=== PATIENT | male | born 1970 | race Caucasian/White ===

== ENCOUNTER 2025-09-12 09:35 | Emergency (ER) | payer BC, SELFPAY ==
[2025-09-12 09:38] VITALS: BP 154/88
[2025-09-12 09:54] VITALS: BP 118/99
[2025-09-12 10:00] VITALS: BP 134/86
[2025-09-12 10:39] VITALS: BMI 32.6
[2025-09-12] MEDS: ANTIVERT 25 MG PO (10:41)
[2025-09-12] MEDS: NSS 1000 IV (10:41)
[2025-09-12 10:57] LABS: Hematocrit 45.4 % (39.0-52.0); Hemoglobin 16.0 g/dL (13.0-18.0); Mean Corp Hgb Conc. 35.2 g/dL (33.0-37.0); Mean Corpuscular Volume 93.4 fL (80.0-94.0); Nucleated Red Blood Cells % 0 % (-); Platelet Count 212 10^3/uL (130-400); Red Cell Dist. Width 11.9 % (11.5-14.5)
[2025-09-12 11:03] VITALS: BP 123/87
--- NOTE | 2025-09-12 11:17 | ED.GENMED ---
History of Present Illness
General
Chief Complaint: Dizziness
Time Seen by Provider: 09/12/25 09:55
History of Present Illness
History of Present Illness:
55-year-old male with history of CAD status post stent to the LAD presenting to the emergency department for dizziness. Patient notes this morning he had acute onset of dizziness upon standing. He felt like he was going to fall towards the left
and felt like everything was spinning. At that time, became diaphoretic and nauseous. He was concerned because of prior cardiac event, however when symptoms started, denied any chest pain. Denies any known history of vertigo. Denies any recent
illness or URI. Denies any fever. Denies any focal weakness or sensory deficits to extremities. Denies visual changes. Denies additional acute medical complaints
Phy Exam
Physical Exam
Physical Exam:
General: Well-appearing, no clinical signs of dehydration, nontoxic and in no acute distress
HEENT: protecting airway, pupils equal reactive, nystagmus when looking toward the right
Neck: appears supple
CV: Normal heart rate, regular rhythm
Resp: No accessory muscle use, no increased work of breathing, lungs clear to auscultation bilaterally
Abd: No distention
Extremities: No deformities, no swelling
Neuro: alert, no focal neurologic deficit
: deferred
Rectal: deferred
Psych: Normal affect
Skin: Intact
Course
Orders/Labs/Results
Orders:
Orders
09/12/25 09:39
ECG [Electrocardiogram (*1)] Urgent
Reason for Study: Vertigo / Dizzy
09/12/25 09:40
EKG- Treatment ONCE
09/12/25 09:43
Electrocardiogram (*1) Urgent
Reason for Study: Vertigo / Dizzy
EKG- Treatment ONCE
09/12/25 10:31
CT Head W/o Iv Contrast Urgent
Comment:
Reason For Exam: dizziness
0.9% Sodium Chloride 1000 ml [Nss] 1,000 ml IV BOLUS
Meclizine [Antivert] 25 mg PO NOW STA
09/12/25 10:45
Complete Blood Count/With Diff Urgent
Comprehensive Metabolic Panel Urgent
Troponin I Urgent
Abnormal Lab Results
09/12/25
10:45
MCH 32.9 H pg
(27.0-31.0)
Absolute Neuts (auto) 6.8 H 10^3/uL
(1.4-6.5)
Absolute Lymphs (auto) 0.9 L 10^3/uL
(1.2-3.4)
Neutrophils % 80.2 H %
(42.2-75.2)
Lymphocytes % 10.3 L %
(20.5-51.1)
Glucose 109 H mg/dl
(70-99)
09/12/25 10:45
09/12/25 10:45
Vital Signs
Initial and Last Documented VS:
Initial Vital Signs
Temp Pulse Resp BP Pulse Ox
97.8 F 67 20 154/88 99
09/12/25 09:38 09/12/25 09:38 09/12/25 09:38 09/12/25 09:38 09/12/25 09:38
Last Documented Vital Signs
Temp Pulse Resp BP Pulse Ox
97.8 F 66 17 123/87 99
09/12/25 09:38 09/12/25 11:03 09/12/25 11:03 09/12/25 11:03 09/12/25 11:21
MDM/Problems Addressed
MDM/Problems Addressed:
55-year-old male with prior history of CAD status post stenting presenting for dizziness. Vital signs on arrival significant for mild hypertension.
On exam, patient resting comfortably, no acute distress. Notes that symptoms have improved. Symptoms appear most consistent with BPPV. No focal neurologic deficits on exam with lower suspicion for acute neurologic process. On examination of the
ears, right-sided cerumen impaction which could be contributing to symptoms. EKG obtained on arrival, nonischemic without present concern for acute cardiac etiology of symptoms. Will screen with laboratory analysis, CT brain imaging, and treat
with IV fluids and meclizine and reassess.
12:10 - Labs unremarkable and CT brain without acute intracranial abnormality. Patient bola hemodynamically stable on reassessment with improvement of dizziness. Feel stable for discharge. Will prescribe meclizine. Otherwise feel stable for
discharge with outpatient follow-up. Advise ENT follow-up if symptoms persist. Did remove the cerumen from the right ear without issue. Return precautions discussed and patient verbalized understanding
*Pulse Oximetry
SaO2: 99
Oxygen Mode of Delivery: Room air
Patient hypoxic: no
*EKG
Interpreted by ED Provider?: Yes
EKG Intrepretation Date: 09/12/25
EKG Intrepretation Time: 11:22
Interpretation: normal
Heart Rate: 66
Rate: normal
Rhythm: sinus
[place]: normal axis
Interval: normal interval
QRS Pattern: normal QRS
Ischemia: no ischemia
*Critical Care Note
Total Time (30-74mins, 75-104mins- exclusive of procedures): Not Applicable
ED Attending Note
-
Portions of this chart may have been created with voice recognition software.� Occasional wrong word or��sound alike� substitutions may have occurred due to the inherent limitations of voice recognition software.
Discharge Plan
Departure
Referrals:
PJ CHOI MD [Family Provider]
Interventions
Interventions:
*Risk Screen - Suicide Last Done: 09/12/25 09:38
*General Assessment Last Done: 09/12/25 10:39
*Neglect/Abuse Screening Last Done: 09/12/25 09:42
*ED Influenza Vaccine History Last Done: 09/12/25 10:40
ED- Neurological Assessment Last Done: 09/12/25 10:52
ED- Cardiac Assessment Last Done: 09/12/25 10:52
ED Swallowing Screen Last Done: 09/12/25 10:35
Discharge Date and Time
Print Language: COMORAN
[2025-09-12 11:24] LABS: ALT (SGPT) 32 U/L (0-50); AST (SGOT) 25 U/L (17-59); Albumin 4.4 g/dl (3.5-5.0); Alkaline Phosphatase 54 U/L (38-126); Blood Urea Nitrogen 20 mg/dl (9-20); Calcium 9.6 mg/dl (8.4-10.2); Carbon Dioxide 30 mmol/L (22-30); Chloride 103 mmol/L (98-107); Estimated Creatinine Clearance > 125 ml/min; Glucose 109 mg/dl (70-99); Potassium 4.8 mmol/L (3.5-5.1); Sodium 135 mmol/L (135-145); Total Protein 7.2 g/dl (6.3-8.2); Troponin I 0.019 ng/ml; eGFR > 60.00
[2025-09-12 12:00] VITALS: BP 142/81
== END 2025-09-12 12:34 | disposition home or self-care (01) ==
LOC: EMR 09:35
PROVIDERS: EMERGENCY PHYSICIAN Student in an Organized Health Care Education/Training Program; FAMILY PHYSICIAN Internal Medicine
DX: R42 Dizziness and giddiness (principal); H61.21 Impacted cerumen, right ear; I25.10 Atherosclerotic heart disease of native coronary artery without angina pectoris; I10 Essential (primary) hypertension; Z95.5 Presence of coronary angioplasty implant and graft
CPT/HCPCS: 99284; 96360; 69209; 70450; 80053; 84484; 85025; 93005